=== PATIENT | female | born 1970 | race Caucasian/White ===

== ENCOUNTER 2022-05-13 05:57 | Emergency (ER) | payer BC ==
[~2022-05-13] VITALS: Ht 170.1 cm; Wt 108.9 kg
[~2022-05-13 05:57] MED LIST: ANAPROX DS550 MG PO; VICODIN 5/500 505 MG PO
[2022-05-13 06:10] VITALS: BP 160/64
== END 2022-05-13 09:39 | disposition home or self-care (01) ==
LOC: ED 05:57
DX: S93.491A Sprain of other ligament of right ankle, initial encounter (principal); W10.8XXA Fall (on) (from) other stairs and steps, initial encounter; Y93.01 Activity, walking, marching and hiking; Y92.89 Other specified places as the place of occurrence of the external cause; Y99.9 Unspecified external cause status

== ENCOUNTER 2023-12-15 09:06 | Emergency (ER) | payer OTHER ==
[~2023-12-15] VITALS: Ht 167.6 cm; Wt 99.8 kg
[2023-12-15 09:18] VITALS: BP 145/43
[2023-12-15] MEDS ORDERED: Dexamethasone Sodium Phospha 20 MG/5 ML VIAL IM ONE (09:25)
[2023-12-15] MEDS ORDERED: Ketorolac Tromethamine 60 MG/2 ML VIAL IM ONE (09:25)
[2023-12-15] MEDS ORDERED: CYCLOBENZAPRINE5 M3 PO (10:09)
[2023-12-15] MEDS ORDERED: MELOXICAM15 MG PO (10:09)
== END 2023-12-15 10:25 | disposition home or self-care (01) ==
LOC: ED 09:06
DX: M54.50 Low back pain, unspecified (principal); M62.830 Muscle spasm of back; Z91.040 Latex allergy status; Z98.890 Other specified postprocedural states